=== PATIENT | male | born 1955 | race Caucasian/White ===

== ENCOUNTER 2019-03-16 07:32 | Day surgery (SDC) | payer BC ==
[~2019-03-16] VITALS: Ht 193 cm; Wt 102.1 kg
--- NOTE | ~2019-03-16 | OR ---
[facility] [address], [place] [address] Draft DATE OF OPERATION: 03/16/2019 SURGEON: Wandy Darling MD PREOPERATIVE DIAGNOSIS: Colon surveillance. POSTOPERATIVE DIAGNOSIS: Normal colon to cecum. PROCEDURE PERFORMED: Total colonoscopy to cecum. ANESTHESIA: Intravenous sedation, fentanyl 100 mcg, Versed 6 mg. INDICATION: This 63-year-old white man is a patient of JOCELIN Mcdaniel. He underwent colonoscopy by me in 2011, which was normal. He has no family history of colon cancer. He is symptom free. He has had knee replacement and was given preoperative antibiotic Ancef. He is admitted to undergo surveillance colonoscopy, understanding the risks of bleeding, infection, and perforation. FINDINGS: The prep was excellent. Complete colonoscopy was undertaken to the cecum without question. There was no sign of abnormality; specifically, no polyps, diverticular formation, colitis, or cancer. DESCRIPTION OF PROCEDURE: The patient was brought to the endoscopy suite and placed in lateral decubitus position. He had been given preoperative antibiotic Ancef 2 g. After satisfactory intravenous sedation, digital rectal examination was performed, showing no abnormality. An Olympus video colonoscope was passed in the rectum and manipulated throughout the colon, ultimately intubating the cecum itself. The ileocecal valve and appendiceal orifice were normal. Scope was withdrawn from that point. Examination throughout showed no sign of abnormality, specifically no polyps, diverticular formation, colitis, or cancer. Retroflex view was normal as well. The scope was removed. The patient was taken to recovery room in good condition. CONCLUDING DIAGNOSIS: PATIENT NAME: JEAN LOZA OPERATIVE REPORT DATE OF : 59 REPORT #: [id number] PHYSICIAN: WANDY DARLING MD PCP: AMINTA LANDRUM REPORT IS CONFIDENTIAL AND NOT TO BE RELEASED WITHOUT AUTHORIZATION [address] [place], [place] [address] Draft Normal colon and rectum. PLAN: Recommend repeat colonoscopy in 10 years sooner if clinically indicated. He will return to the ongoing care of JOCELIN Mcdaniel. MD CLARENCE Mares/FLORENCE /[id number] cc: Aminta Landrum PA-C Copies: AMINTA LANDRUM ~ PATIENT NAME: JEAN LOZA OPERATIVE REPORT DATE OF : 59 REPORT #: [id number] PHYSICIAN: WANDY DARLING MD PCP: AMINTA LANDRUM REPORT IS CONFIDENTIAL AND NOT TO BE RELEASED WITHOUT AUTHORIZATION
[~2019-03-16 07:32] MED LIST: 24 HOUR ALLERG9.9 ML NAS; ASPIRIN325 MG PO; CURCUMIN1 GM MISC; METOPROLOL TART25 MG PO; MULTIVITAMINS1 EAC8 PO; OMEGA-31000 MG PO; SULINDAC200 MG PO
[2019-03-16] MEDS ORDERED: RED YEAST RICE600 M1 PO (07:50)
--- NOTE | 2019-03-16 09:52 | NUR ---
03/16/19 0952 Sary Swanson 0910 PT ARRIVED IN PACU AWAKE WITH NO C/O/S. ABD SOFT. PASSING FLATUS. 919 SITTING UP IN BED VISITING WITH STAFF. 929 PT GETTING DRESSED. AT BEDSIDE. 40 DC INSTRUCTIONS GIVEN. LEFT VIA W/C.
== END 2019-03-16 09:40 | disposition home or self-care (01) ==
LOC: OPS 07:32 → DS 07:32 → OPS 08:30
PROVIDERS: Surgery
PROC: 0DJD8ZZ Inspection of Lower Intestinal Tract, Via Natural or Artificial Opening Endoscopic (ICD-10-PCS; principal; 2019-03-16 08:30)
DX: Z12.11 Encounter for screening for malignant neoplasm of colon (principal); I10 Essential (primary) hypertension; H91.13 Presbycusis, bilateral; Z96.653 Presence of artificial knee joint, bilateral
CPT/HCPCS: 99153; G0500; J0690; J2250; J3010; J7120